=== PATIENT | female | born 1990 | race Caucasian/White ===

== ENCOUNTER 2017-03-12 11:08 | Emergency (ER) | payer OTHER ==
--- NOTE | ~2017-03-12 | US67 ---
[facility] A Service of [facility] & [facility] RADIOLOGY TEXT RESULTS PATIENT: KANCHAN LATHAM LOCATION: [facility] : [birth year] UNIT #: [id number] AGE: [address]: Fouzia Garcia SEX: F ORDER DR: [id number] [facility] [address] [place], [place] [address] [id number] E MR#: [id number] Acc #: [id number] NAME: KANCHAN LATHAM : 1990 SEX: F STUDY DATE/TIME: 03/12/2017 13:28 UNIT: [facility] ROOM: STUDY DESCRIPTION: US Gallbladder Attending Physician: Fouzia Garcia P.A.-C. Ordering Physician: Fouzia Garcia P.A.-C. Primary Care Physician: [facility] MEDICAL IMAGING REPORT This report is preliminary unless electronic signature is present EXAM Gallbladder ultrasound HISTORY Right upper quadrant pain, nausea and vomiting for 1 day. FINDINGS Ultrasound examination of the gallbladder demonstrates tiny gallstones and probable small amount of echogenic gallbladder sludge. No gallbladder wall thickening or distension. Common bile duct is near the upper limits of normal in size, measuring 7 mm in diameter. No pericholecystic fluid. No intrahepatic biliary ductal dilatation. Survey of the right kidney demonstrates no hydronephrosis. IMPRESSION 1. Tiny gallstones and probable minimal gallbladder sludge. 2. No gallbladder distension or wall thickening. 3. Borderline dilatation of the common bile duct measuring 7 mm in diameter. Dictated by... Robson Bowman M.D. THIS IS AN ELECTRONICALLY VERIFIED REPORT Robson Bowman M.D. at 03/12/2017 10:14 PM DFL/psc TD: 03/12/2017 20:16 JOB #: [id number] MEDICAL IMAGING REPORT Page 1 of 1 COPY
[~2017-03-12 11:08] MED LIST: ACETAMINOPHEN; IBUPROFEN800 MG PO; KETOPROFEN PO; PHENERGAN25 M1 PO
[2017-03-12 12:46] LABS: BASOPHIL% 0.1 % (0-2.5); EOSINOPHIL% 0.1 % (0.0-7.0); HEMATOCRIT 38.8 % (35.0-45.0); HEMOGLOBIN 12.2 gm/dL (12.0-16.0); LYMPHOCYTE# 0.9 X10e3 (1.0-3.5); LYMPHOCYTE% 7.4 % (17.0-45.0); MEAN CELL VOLUME 78.3 FL (83-96); MEAN CORPUSCULAR HEMOGLOBIN 24.7 PG (28-34); MEAN CORPUSCULAR HGB CONC 31.6 g/dL (30-36); MEAN PLATELET VOLUME 8.3 FL (6.5-11.5); MONOCYTE# 0.3 X10e3 (0-1.0); MONOCYTE% 2.9 % (3.0-12.0); NEUTROPHIL# 10.3 X10e3 (1.5-7.1); NEUTROPHIL% 89.5 % (40-75); PLATELET COUNT 356 X10e3 (140-420); RED BLOOD COUNT 4.95 X10e (3.90-5.30); RED CELL DISTRIBUTION WIDTH 16.6 % (11.0-15.5); WHITE BLOOD COUNT 11.5 X10e3 (4.0-10.5)
[2017-03-12 12:49] LABS: DIFF IND NO
[2017-03-12 13:22] LABS: ALBUMIN SERUM 4.1 g/dL (3.5-5.0); BILIRUBIN, DIRECT 1.1 mg/dL (0.0-0.2); BILIRUBIN,INDIRECT 0.9 mg/dL (0.0-0.9); BUN/CREATININE RATIO 18.33; CALCIUM SERUM 9.4 mg/dL (8.4-10.2); CREATININE SERUM 0.6 mg/dL (0.6-1.4); GLOM FILT RATE Estimated 125.8 mL/min (>60); POTASSIUM 3.8 mmol/L (3.5-5.1); PROTEIN TOTAL SERUM 7.5 g/dL (6.0-8.3)
[2017-03-12 14:52] LABS: URINE SOURCE CLEAN CATCH
[2017-03-12 15:02] LABS: URINE APPEARANCE CLOUDY; URINE BLOOD NEG (NEG); URINE COLOR DK YELLOW; URINE GLUCOSE NEG (NEG); URINE KETONE TRACE (NEG); URINE LEUKOCYTE ESTERASE TRACE (NEG); URINE NITRATE NEG (NEG); URINE PROTEIN 2+ (NEG); URINE SPECIFIC GRAVITY 1.031 (1.003-1.035)
[2017-03-12 15:05] LABS: CULTURE INDICATED? YES; URINE BACTERIA AUWI 2+ (NEGATIVE); URINE SQUAMOUS EPITHELIAL CELL MOD /[HPF]
[2017-03-12 15:14] LABS: URINE BILIRUBIN NEG (NEG)
[2017-05-11] MEDS ORDERED: STOOL SOFTENER50 MG PO (15:15)
[2017-05-11] MEDS ORDERED: IRON PO (15:15)
[2017-05-11] MEDS ORDERED: PRENATAL FORMU1 EAC1 PO (15:15)
== END 2017-03-12 14:58 | disposition home or self-care (01) ==
LOC: CED 11:08
DX: K80.70 Calculus of gallbladder and bile duct without cholecystitis without obstruction (principal); Z88.2 Allergy status to sulfonamides; Z88.8 Allergy status to other drugs, medicaments and biological substances
CPT/HCPCS: 36415; 76705; 80048; 80076; 81003; 83690; 84703; 85025; 87086; 96361; 96374; 96375; 99284

== ENCOUNTER → 2017-05-04 | Outpatient (CLI) | payer OTHER ==
[~2017-05-04] MED LIST changes: +IRON PO; +PRENATAL FORMU1 EAC1 PO; +STOOL SOFTENER50 MG PO
[2017-05-04 16:11] LABS: ALBUMIN SERUM 3.9 g/dL (3.5-5.0); BILIRUBIN,TOTAL 0.5 mg/dL (0.2-2.0); CALCIUM SERUM 9.3 mg/dL (8.4-10.2); CREATININE SERUM 0.5 mg/dL (0.6-1.4); GLOM FILT RATE Estimated 133.6 mL/min (>60); POTASSIUM 3.9 mmol/L (3.5-5.1); PROTEIN TOTAL SERUM 6.7 g/dL (6.0-8.3)
== END | disposition home or self-care (01) ==
LOC: CAMB 14:35
PROVIDERS: Surgery
DX: Z01.812 Encounter for preprocedural laboratory examination (principal)
CPT/HCPCS: 36415; 80053

== ENCOUNTER → 2017-05-11 | Day surgery (SDC) | payer OTHER ==
--- NOTE | ~2017-05-11 | OR ---
Unit #: [id number] #: [id number] Patient: KANCHAN LATHAM [id number] [address] [address] [id number] O MR#: [id number] NAME: KANCHAN LATHAM ROOM: Date of Procedure: 05/11/2017 Admission Date: 05/11/2017 Surgeon: James Méndez Jr., M.D. : 1990 Attending Physician: James Méndez Jr., M.D. Primary Care Physician: [facility] OPERATIVE REPORT INDICATIONS FOR PROCEDURE The patient is a 26-year-old obese white female, who has been having intermittent mid epigastric and right upper quadrant abdominal pains. She has recently been worked up and noted to have evidence of small gallstones with sludge in the gallbladder. She is brought in this time for laparoscopic cholecystectomy at her request. Preoperative liver function tests, there was minimal elevation of her alkaline phosphatase and AST probably indicative of some steatosis of the liver since she is markedly obese. She understands the procedure including the risks, including that of common duct injury, biliary leak, and bleeding, and intra-abdominal organ injury, and consents. PREOPERATIVE DIAGNOSES Chronic cholecystitis and cholelithiasis with biliary colic. POSTOPERATIVE DIAGNOSES Chronic cholecystitis and cholelithiasis with biliary colic, also noting a boggy enlarged uterus. CERAMICS TECHNICIAN Dr. Varghese Barraza. ANESTHESIA General with endotracheal intubation and 0.5% Marcaine with epinephrine locally. PROCEDURE PERFORMED Laparoscopic cholecystectomy. DESCRIPTION OF PROCEDURE The patient was positioned in supine position. After being anesthetized and intubated, she was prepped and draped in routine fashion for laparoscopic cholecystectomy. A small supraumbilical incision was made approximately a 1 cm in length. This was carried down to the fascia. The fascia was lifted between 2 Maggie clamps and a Veress needle introduced into the abdomen. The abdomen was then inflated with CO2 gas. A 5-mm port was introduced into the abdomen followed by the camera. There was no evidence of any injury related to the introduction of the port of the Veress needle. Brief intra-abdominal exploration was carried out. The patient was noted to have what appeared to be a chronically inflamed gallbladder. Some fatty globular appearance of the liver and a boggy appearing uterus with a cyst of the left ovary approximately 3 cm in Unit #: [id number] #: [id number] Patient: KANCHAN LATHAM. At this point, two 5-mm ports were placed laterally 11 mm port just to the right of the upper midline. The gallbladder was lifted. Dissection was carried out in the triangle of Calot, cystic duct was isolated 1 to 2 mm in diameter was hemoclipped x4, and divided 1 cm from its junction with the common duct. Cystic artery was identified, hemoclipped x3, and divided and the gallbladder was then removed from its bed with the hook cautery using a current of 20. After it was released, it was removed through the upper midline incision along with the grasping clamp and the port. After checking the area and noting total hemostasis in the bed of the gallbladder, the clips on cystic duct and cystic artery were visualized with no evidence of any leak or bleeding. CO2 was expressed from the abdomen. The larger port site fascia was approximated with the neoClose technique and after the CO2 was expressed from the abdomen, port sites were injected with 0.5% Marcaine with epinephrine. Once the ports removed, the wounds were irrigated. After hemostasis achieved with Bovie cautery, the skin edges were approximated with stainless-steel skin clips and skin stapling device. Sterile dressings were applied externally. Estimated blood loss less than 50 mL. The patient received less than 1500 mL crystalloid solution during the procedure. Sponges and instrument counts were correct x3. No drains used. No complications. The patient was taken to the recovery room with stable vital signs in satisfactory condition. Dictated by... James Méndez Jr., M.D. JMB/manfred TD: 05/11/2017 13:34 JOB #: [id number] OPERATIVE REPORT Page 1 of 1 X James Méndez MD PROCEDURE OPERATIVE NOTE
== END | disposition home or self-care (01) ==
LOC: CSUR 08:54
DX: K80.10 Calculus of gallbladder with chronic cholecystitis without obstruction (principal); K21.9 Gastro-esophageal reflux disease without esophagitis; E66.9 Obesity, unspecified; J30.9 Allergic rhinitis, unspecified; Z68.43 Body mass index [BMI] 50.0-59.9, adult; Z88.2 Allergy status to sulfonamides; Z98.890 Other specified postprocedural states
CPT/HCPCS: 84703; 88304; J0131; J0330; J0690; J1650; J1885; J2250; J2405; J2550; J3010